=== PATIENT | female | born 1960 | race Caucasian/White ===

== ENCOUNTER 2023-03-10 14:39 | Emergency (ER) | payer MEDICAID ==
[~2023-03-10] VITALS: Ht 142.2 cm; Wt 90.7 kg
[2023-03-10 14:55] VITALS: BP 104/43; PULSE 97; RESP 22; TEMP 98.6; O2SAT 92
[2023-03-10 15:02] VITALS: O2SAT 92
--- NOTE | 2023-03-10 15:07 | NUR ---
62 YO F JAMAL PRESENTS W/SOB SINCE LAST NIGHT SINCE DISCHARGED FROM [facility]. PT STATES SHE WAS ADMITTED AT [facility] FOR COPD EXACERBATION AND PLACED ON BIPAP. PT STATES TROUBLE BREATHING AND DIFFICULTY SLEEPING BECAUSE IT IS TOO HOT IN HER HOUSE. PT DENIES USING BIPAP AT HOME, FEVER, CHILLS, CP, NAUSEA, VOMITING, FOCAL WEAKNESS. PT STATES SHE CURRENTLY HAS MINIMAL SOB. NAD NOTED, ON MACHINE III COREMAKER, SAFETY MAINTAINED, CALL LIGHT WITHIN REACH. HX: COPD, CHF, HTN, DM, HYPERKALEMIA
[2023-03-10 17:02] VITALS: O2SAT 97
--- NOTE | 2023-03-10 17:46 | NUR ---
PT ON BEDSIDE COMODE
[2023-03-10 18:02] VITALS: TEMP 98.6
[2023-03-10 18:21] LABS: BASOPHILS % (AUTO) 0.1 % (0.0-2.0); EOSINOPHILS # (AUTO) 0.1 K/uL (0-0.4); EOSINOPHILS % (AUTO) 0.8 % (0.0-4.0); HEMATOCRIT 31.9 % (36-48); HEMOGLOBIN 9.7 g/dL (12.0-16.0); LYMPHOCYTES # (AUTO) 0.5 K/uL (2.5-16.5); LYMPHOCYTES % (AUTO) 5.9 % (20.5-51.1); MEAN CORPUSCULAR HEMOGLOBIN 22 pg (27-31); MEAN CORPUSCULAR HGB CONC 30 g/dL (33-37); MEAN CORPUSCULAR VOLUME 72.8 fL (80-94); MONOCYTES # (AUTO) 0.3 K/uL (0.8-1.0); MONOCYTES % (AUTO) 3.5 % (1.7-9.3); NEUTROPHILS # (AUTO) 7.6 K/uL (1.8-7.7); NEUTROPHILS % (AUTO) 89.7 % (42.2-75.2); PLATELET COUNT (AUTO) 193 K/uL (140-450); RED BLOOD CELL COUNT(AUTO) 4.38 MIL/uL (4.20-5.40); RED CELL DISTRIBUTION WIDTH 23.1 % (11.6-13.7); WHITE BLOOD COUNT (AUTO) 8.5 K/uL (4.8-10.8)
[2023-03-10 18:40] LABS: ALBUMIN 3.4 g/dL (3.4-5.0); ANION GAP 13.8 (8-16); ASPARTATE AMINOTRANSFERASE 20 U/L (15-37); CARBON DIOXIDE 25.9 mmol/L (21-32); CHLORIDE 106 mmol/L (98-107); CREATININE 1.8 mg/dL (0.6-1.3); GFR ARICAN-AMERICAN 37 mL/min (>90); GLUCOSE 264 mg/dL (74-106); POTASSIUM 4.7 mmol/L (3.5-5.1); SODIUM SERUM 141 mmol/L (136-145); TOTAL BILIRUBIN 0.4 mg/dL (0.0-1.0); UREA NITROGEN, BLOOD 57 mg/dL (7-18)
[2023-03-10 18:47] LABS: PROTHROMBIN TIME 10.4 secs (10.8-13.4)
--- NOTE | 2023-03-10 19:20 | NUR ---
RECEIVED REPORT FROM RAYMON BETH. PT LYING IN BED WITH NO S/S SOB. VSS. CALL LIGHT WITHIN REACH.
--- NOTE | 2023-03-10 20:59 | NUR ---
DR ARMENDARIZ AT BEDSIDE
--- NOTE | 2023-03-10 20:59 | NUR ---
Lindsey rousseau in [facility] - 03/10/[address] Scott examining patient.
[2023-03-10 21:05] VITALS: BP 134/71; PULSE 84; RESP 15
[2023-03-10 21:08] VITALS: O2SAT 98
--- NOTE | 2023-03-10 21:40 | NUR ---
PT TAKEN TO CT
--- NOTE | 2023-03-10 21:53 | NUR ---
PT RETURN FROM CT
[2023-03-10] MEDS: ACETAMINOPHEN 325 MG TAB PO ONE (22:46)
[2023-03-10] MEDS: ACETAMINOPHEN EXTRA STRENGTH 500 MG TAB PO ONE (22:52)
--- NOTE | 2023-03-10 23:03 | NUR ---
PT AMBULATE TO BEDSIDE COMODE WITH ASSISTANCE. 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 CALL LIGHT WITHIN REACH.
--- NOTE | 2023-03-11 00:12 | NUR ---
Patient discharged with v/s stable. Written and verbal after care instructions given and explained. Patient verbalized understanding. Wheel Chair Assisted with to car. All questions addressed prior to discharge. Advised to follow up with PMD.
== END 2023-03-11 00:12 | disposition home or self-care (01) ==
LOC: MED 14:39
DX: R06.02 Shortness of breath (principal); N28.9 Disorder of kidney and ureter, unspecified; I11.0 Hypertensive heart disease with heart failure; I50.9 Heart failure, unspecified; E11.9 Type 2 diabetes mellitus without complications; E87.5 Hyperkalemia; J44.9 Chronic obstructive pulmonary disease, unspecified; Z88.0 Allergy status to penicillin; Z88.5 Allergy status to narcotic agent
CPT/HCPCS: 36415; 71045; 71275; 80053; 82948; 84484; 85025; 85379; 85610; 85730; 93005; 99285; Q9967